=== PATIENT | male | born 1955 | race American Indian/Alaskan Native ===

== ENCOUNTER 2017-12-05 10:40 | Emergency (ER) | payer MEDICARE ==
--- NOTE | 2017-12-05 13:35 | Emergency Department Report ---
Blank Doc - Documentation Documentation: Patient presents with complaints of dizziness for one month. Patient reports that while being interviewed for new pain management physician when asked about dizziness he replied yes. Patient reports that pain management clinic recommended the patient go to the ER to be evaluated for dizziness before being prescribed any new medication. Patient reports also some shortness of breath. Denies chest pain fever coughing leg swelling. Patient reports a fall possible head injury.
[2017-12-05 13:54] LABS: Basophils % (Auto) 0.4 % (0.0-1.8); Eosinophils % (Auto) 0.7 % (0.0-4.3); Hematocrit 42.2 % (35.5-45.6); Hemoglobin 14.4 gm/dl (11.8-15.2); Lymphocytes # (Auto) 2.4 K/mm3 (1.2-5.4); Lymphocytes % (Auto) 39.2 % (13.4-35.0); Mean Corpuscular HGB Conc 34 % (32-34); Mean Corpuscular Hemoglobin 33 pg (28-32); Mean Corpuscular Volume 97 fl (84-94); Monocytes # (Auto) 0.5 K/mm3 (0.0-0.8); Monocytes % (Auto) 7.6 % (0.0-7.3); Platelet Count 149 K/mm3 (140-440); Red Blood Count 4.36 M/mm3 (3.65-5.03); Red Cell Distribution Width 12.7 % (13.2-15.2)
--- NOTE | 2017-12-05 13:58 | Emergency Department Report ---
HPI - HPI HPI: Patient presents with complaints of dizziness for one month. Patient reports that while being interviewed for new pain management physician when asked about dizziness he replied yes. Patient reports that pain management clinic recommended the patient go to the ER to be evaluated for dizziness before being prescribed any new medication. Patient reports also some shortness of breath. Denies chest pain fever coughing leg swelling. Patient reports a fall possible head injury. Patient denies any pain. Patient said he has had history of vertigo before and was treated. He said when he was talking to pain doctor on the phone to schedule appointment for management of chronic back pain with sciatic, he mentioned that he was dizzy 2 days ago and told him that he needs to go to the emergency room to be evaluated before he can be seen by pain clinic. Denies any fall. Denies any fever or chills. Denies any nasal congestion or coughing. Denies any headache or neck pain <RETA PACKER A - Last Filed: 12/05/17 16:45> <JERE RAIN - Last Filed: 12/05/17 20:29> - General Chief Complaint: Allergic Reaction Time Seen by Provider: 12/05/17 13:29 ED Past Medical Hx - Past Medical History Previous Medical History?: Yes Hx Hypertension: Yes Additional medical history: Gout, Sciatica, Disc problems - Surgical History Past Surgical History?: Yes Additional Surgical History: SCIATIC NERVE SURGERY - Family History Family history: no significant - Social History Smoking Status: Current Every Day Smoker Substance Use Type: None <RETA PACKER A - Last Filed: 12/05/17 16:45> <JERE RAIN - Last Filed: 12/05/17 20:29> - Medications Home Medications: Home Medications Medication Instructions Recorded Confirmed Last Taken Type Allopurinol [Zyloprim] 04/17/13 04/17/13 04/16/13 History Aspirin [Aspirin TAB] 04/17/13 04/17/13 04/16/13 History Atenolol [Tenormin] 25 mg PO DAILY 04/17/13 04/17/13 04/16/13 History Cyclobenzaprine [Flexeril] 10 mg PO TID PRN #20 tablet 04/17/[address] [Voltaren] 75 mg PO TID #60 tablet 04/17/13 Unknown Rx Hydrocodone Bit/Acetaminophen 1 - 2 each PO Q4HR PRN #20 tablet 04/17/13 Unknown Rx [Lortab 5-500 Tablet] Lisinopril [Zestril TAB] 04/17/13 04/17/13 04/16/13 History Meclizine [Antivert] 25 mg PO TID PRN #12 tablet 12/05/17 Unknown Rx ED Review of Systems ROS: Stated complaint: SIDE EFFECTS OF LYRICA Other details as noted in HPI Comment: All other systems reviewed and negative Constitutional: no symptoms reported Eyes: denies: eye pain, vision change ENT: denies: ear pain, throat pain, hearing loss, epistaxis, congestion Respiratory: no symptoms reported Cardiovascular: denies: chest pain, palpitations, dyspnea on exertion, orthopnea , edema, syncope, paroxysmal nocturnal dyspnea Gastrointestinal: denies: abdominal pain, nausea, vomiting, diarrhea, constipation, hematemesis, melena, hematochezia Genitourinary: denies: urgency, dysuria, frequency, hematuria, discharge Musculoskeletal: other (periodic forgetfulness). denies: back pain, joint swelling, arthralgia, myalgia Skin: denies: rash Neurological: abnormal gait, vertigo. denies: headache, weakness, numbness, paresthesias, confusion <RETA PACKER A - Last Filed: 12/05/17 16:45> ROS: Stated complaint: SIDE EFFECTS OF LYRICA Other details as noted in HPI <JERE RAIN P - Last Filed: 12/05/17 20:29> Physical Exam - Physical Exam Vital Signs: Vital Signs 12/05/17 10:56 Temperature 98.3 F Pulse Rate 59 L Respiratory 17 Rate Blood Pressure 149/74 O2 Sat by Pulse 100 Oximetry Vital Signs 12/05/17 12/05/17 10:56 15:04 Temperature 98.3 F Pulse Rate 59 L 87 Respiratory 17 20 Rate Blood Pressure 149/74 Blood Pressure 111/75 [Right] O2 Sat by Pulse 100 99 Oximetry General: This is a 62-year-old male well-nourished well-developed in no acute distress Physical Exam: Head: Normocephalic, atraumatic, no abrasion, no bruising and no contusion. Eyes: Biateral pupils equal and reactive to light, bilateral EOM intact.. Bilateral conjunctival and sclera without injection, normal accommodation. No nystagmus Mouth: Mucosa dry, no pharyngeal exudate or erythema. No peritonsillar abscesses. Uvula is midline and oral airways patent. Ears: Bilateral TMs pearly roy Bilateral EAC without any redness swelling or drainage. No mastoid bone tenderness Nose: Bilateral nasal mucosa normal ,Maxillary and frontal sinuses non-tender to palpate. Neck: Supple, No Cervical adenopathy, full range of motion and no C-spine tenderness. No swelling or tracheal deviation normal reflexes Cardiovascular: S1, S2. Bradycardic at 50 and regular. No murmur. Capillary refill is less then 3 seconds. Apical pulse is at 62 bpm Lungs: Clear to auscultate bilaterally. No rhonchi, wheezes or rales. No chest wall tenderness. No chest contusion. No bruising to chest. MSK: Strength 5/5 in all extremities. No joint deformity or crepitus. Normal inspection. Full range of motion to all extremities. No laceration, abrasion or ecchymotic area noted. Abdomen: Non-tender to palpate in all quadrants, no guarding or rebound tenderness, positive bowel sounds in all quadrants. No CVA tenderness. No hernia, bruit or mass. No rigidity or distention. Extremities: No clubbing, cyanosis or edema. +2 pulses. No neurovascular compromise Skin: Clean, dry and intact. No rash or lesions. Neurological: GCS at 15, Pt is alert and oriented 3 speech is clear . Bilateral hand printed circuit board panels deburrer strong and equal. Patient with unsteady gait which is not new per patient. Negative Romberg and no pronator drift. Normal Reflexes. No motor or sensory deficit Back: No vertebral tenderness, no paraspinal tenderness. Ambulates without any difficulties. Psych: Normal mood and behavior <RETA PACKER A - Last Filed: 12/05/17 16:45> - Physical Exam Vital Signs: Vital Signs 12/05/17 12/05/17 12/05/17 10:56 15:04 17:17 Temperature 98.3 F Pulse Rate 59 L 87 72 Respiratory 17 20 Rate Blood Pressure 149/74 Blood Pressure 111/75 [Right] O2 Sat by Pulse 100 99 Oximetry <JERE RAIN P - Last Filed: 12/05/17 20:29> ED Course Vital Signs 12/05/17 10:56 Temperature 98.3 F Pulse Rate 59 L Respiratory 17 Rate Blood Pressure 149/74 O2 Sat by Pulse 100 Oximetry Vital Signs 12/05/17 12/05/17 10:56 15:04 Temperature 98.3 F Pulse Rate 59 L 87 Respiratory 17 20 Rate Blood Pressure 149/74 Blood Pressure 111/75 [Right] O2 Sat by Pulse 100 99 Oximetry See vital signs for orthostatic vitals. - Reevaluation(s) Reevaluation #1: 12/05/17 16:54 Patient stable throughout ER stay. He is able to tolerate oral liquids without any difficulties. Orthostatic vital signs are stable. Patient with vertigo which is not new. <RETA PACKER A - Last Filed: 12/05/17 16:45> Vital Signs 12/05/17 12/05/17 12/05/17 10:56 15:04 17:17 Temperature 98.3 F Pulse Rate 59 L 87 72 Respiratory 17 20 Rate Blood Pressure 149/74 Blood Pressure 111/75 [Right] O2 Sat by Pulse 100 99 Oximetry <JERE RAIN P - Last Filed: 12/05/17 20:29> ED Medical Decision Making - Lab Data Result diagrams: 12/05/17 13:34 12/05/17 13:41 Lab Results 12/05/17 12/05/17 12/05/17 Range/Units 13:34 13:34 13:34 WBC 6.2 (4.5-11.0) K/mm3 RBC 4.36 (3.65-5.03) M/mm3 Hgb 14.4 (11.8-15.2) gm/dl Hct 42.2 (35.5-45.6) % MCV 97 H (84-94) fl MCH 33 H (28-32) pg MCHC 34 (32-34) % RDW 12.7 L (13.2-15.2) % Plt Count 149 (140-440) K/mm3 Lymph % (Auto) 39.2 H (13.4-35.0) % [place] % (Auto) 7.6 H (0.0-7.3) % Eos % (Auto) 0.7 (0.0-4.3) % Baso % (Auto) 0.4 (0.0-1.8) % Lymph # 2.4 (1.2-5.4) K/mm3 [place] # 0.5 (0.0-0.8) K/mm3 Eos # 0.0 (0.0-0.4) K/mm3 Baso # 0.0 (0.0-0.1) K/mm3 Seg Neutrophils % 52.1 (40.0-70.0) % Seg Neutrophils # 3.2 (1.8-7.7) K/mm3 PT 12.5 (12.2-14.9) Sec. INR 0.89 (0.87-1.13) Sodium (137-145) mmol/L Potassium (3.6-5.0) mmol/L Chloride (98-107) mmol/L Carbon Dioxide (22-30) mmol/L Anion Gap mmol/L BUN (9-20) mg/dL Creatinine (0.8-1.5) mg/dL Estimated GFR ml/min BUN/Creatinine Ratio % Glucose (75-100) mg/dL Calcium (8.4-10.2) mg/dL Total Bilirubin (0.1-1.2) mg/dL AST (5-40) units/L ALT (7-56) units/L Alkaline Phosphatase (35-129) units/L Total Creatine Kinase (55-170) units/L Troponin T < 0.010 (0.00-0.029) ng/mL NT-Pro-B Natriuret Pep 67.32 (0-900) pg/mL Total Protein (6.3-8.2) g/dL Albumin (3.9-5) g/dL Albumin/Globulin Ratio % Urine Color (Yellow) Urine Turbidity (Clear) Urine pH (5.0-7.0) Ur Specific [place] (1.003-1.030) Urine Protein (Negative) mg/dL Urine Glucose (UA) (Negative) mg/dL Urine Ketones (Negative) mg/dL Urine Blood (Negative) Urine Nitrite (Negative) Urine Bilirubin (Negative) Urine Urobilinogen (<2.0) mg/dL Ur Leukocyte Esterase (Negative) Urine WBC (Auto) (0.0-6.0) /HPF Urine RBC (Auto) (0.0-6.0) /HPF U Epithel Cells (Auto) (0-13.0) /HPF Urine Mucus /HPF 12/05/17 12/05/17 Range/Units 13:41 Unknown WBC (4.5-11.0) K/mm3 RBC (3.65-5.03) M/mm3 Hgb (11.8-15.2) gm/dl Hct (35.5-45.6) % MCV (84-94) fl MCH (28-32) pg MCHC (32-34) % RDW (13.2-15.2) % Plt Count (140-440) K/mm3 Lymph % (Auto) (13.4-35.0) % [place] % (Auto) (0.0-7.3) % Eos % (Auto) (0.0-4.3) % Baso % (Auto) (0.0-1.8) % Lymph # (1.2-5.4) K/mm3 [place] # (0.0-0.8) K/mm3 Eos # (0.0-0.4) K/mm3 Baso # (0.0-0.1) K/mm3 Seg Neutrophils % (40.0-70.0) % Seg Neutrophils # (1.8-7.7) K/mm3 PT (12.2-14.9) Sec. INR (0.87-1.13) Sodium 142 (137-145) mmol/L Potassium 3.9 (3.6-5.0) mmol/L Chloride 103.4 (98-107) mmol/L Carbon Dioxide 29 (22-30) mmol/L Anion Gap 14 mmol/L BUN 14 (9-20) mg/dL Creatinine 1.0 (0.8-1.5) mg/dL Estimated GFR > 60 ml/min BUN/Creatinine Ratio 14 % Glucose 109 H (75-100) mg/dL Calcium 9.0 (8.4-10.2) mg/dL Total Bilirubin 0.60 (0.1-1.2) mg/dL AST 27 (5-40) units/L ALT 26 (7-56) units/L Alkaline Phosphatase 67 (35-129) units/L Total Creatine Kinase 162 (55-170) units/L Troponin T (0.00-0.029) ng/mL NT-Pro-B Natriuret Pep (0-900) pg/mL Total Protein 6.8 (6.3-8.2) g/dL Albumin 4.0 (3.9-5) g/dL Albumin/Globulin Ratio 1.4 % Urine Color [place] (Yellow) Urine Turbidity Clear (Clear) Urine pH 5.0 (5.0-7.0) Ur Specific [place] 1.026 (1.003-1.030) Urine Protein <15 mg/dl (Negative) mg/dL Urine Glucose (UA) Neg (Negative) mg/dL Urine Ketones Neg (Negative) mg/dL Urine Blood Neg (Negative) Urine Nitrite Neg (Negative) Urine Bilirubin Neg (Negative) Urine Urobilinogen 4.0 (<2.0) mg/dL Ur Leukocyte Esterase Neg (Negative) Urine WBC (Auto) 1.0 (0.0-6.0) /HPF Urine RBC (Auto) 4.0 (0.0-6.0) /HPF U Epithel Cells (Auto) < 1.0 (0-13.0) /HPF Urine Mucus 2+ /HPF - EKG Data -: EKG Interpreted by Me (attending physician in ED) EKG shows normal: sinus rhythm (sinus bradycardia at 48 bpm but apical pulse rate is at 62 bpm manually) Rate: bradycardia - EKG Data When compared to previous EKG there are: no significant change - Radiology Data Radiology results: report reviewed Chest x-ray revealed no acute cardiopulmonary findings CT scan of the head and brain without contrast reveals no acute findings. - Medical Decision Making ED course: In here to be evaluated for complaints of dizziness, occasional forgetfulness and unsteadiness and feet. Patient said this is not new for him but he has chronic back pain with sciatica and was referred to a pain clinic and while he was making his appointment on the following they told him that he needs to be seen by the emergency room for dizziness. Patient has a history of vertigo and he said he's been dizzy before he says that he told them when he was talking to them a couple days on the phone that he is dizzy and this is when the accident come to the emergency room. Denies any fall. CT scan of the head and brain reports normal examination, chest x-ray is normal. Lab results were stable . Refer to radiology section for chest x-ray and CT scan results detail and laboratory section for lab detail. EKG stable with sinus bradycardia but patient's apical heart rate is at 62 bpm. He is not experiencing any dizziness at present. Patient with chronic vertigo and experience periodic dizziness. I discussed this and is lab results and radiology results. Also discussed diagnosis treatment plan and need to follow up with his primary care doctor. Patient says that he has an appointment with his primary care doctor on December 26, 2017. Discharge home with prescription for Antivert. <RETA PACKER A - Last Filed: 12/05/17 16:45> - Lab Data Result diagrams: 12/05/17 13:34 12/05/17 13:41 <JERE RAIN P - Last Filed: 12/05/17 20:29> Critical care attestation.: If time is entered above; I have spent that time in minutes in the direct care of this critically ill patient, excluding procedure time. <RETA PACKER A - Last Filed: 12/05/17 16:45> Critical care attestation.: If time is entered above; I have spent that time in minutes in the direct care of this critically ill patient, excluding procedure time. <JERE RAIN P - Last Filed: 12/05/17 20:29> ED Disposition Is pt being admited?: No Does the pt Need Aspirin: No <RETA PACKER A - Last Filed: 12/05/17 16:45> <JERE RAIN P - Last Filed: 12/05/17 20:29> Disposition: DC-01 TO HOME OR SELFCARE Condition: Stable Instructions: Vertigo (ED) Additional Instructions: Please take Antivert as prescribed Your primary care physician for ER visit for vertigo Prescriptions: Meclizine [Antivert] 25 mg PO TID PRN #12 tablet PRN Reason: Vertigo Referrals: CIERA GALLARDO MD [Primary Care Provider] - 12/07/17
[2017-12-05 14:04] LABS: Alanine Aminotransferase 26 units/L (7-56); BUN/Creatinine Ratio 14; Blood Urea Nitrogen 14 mg/dL (9-20); Hemolysis Index 9
[2017-12-05 14:05] LABS: INR 0.89 (0.87-1.13)
[2017-12-05 15:01] LABS: Bilirubin,Urine NEG (Negative); Blood,Urine NEG (Negative); Color,Urine Amber (Yellow); Mucus,Urine 2+ /HPF; Protein,Urine <15 mg/dL mg/dL (Negative)
[2017-12-05 15:05] VITALS: BP 111/75
--- NOTE | 2017-12-05 15:10 | Cat Scan Report ---
CT HEAD WITHOUT CONTRAST: HISTORY: Dizziness. TECHNIQUE: Sequential 2.5mm CT images. COMPARISON: none. FINDINGS: Cerebral Parenchyma: Within normal limits. Cerebellum: Within normal limits. Brainstem: Within normal limits. Ventricles: Normal. Sella: Normal. Extra-axial spaces: Normal. Basal Cisterns: Normal. Intracranial Hemorrhage: None. Midline Shift: None. Calvarium: Normal. Sinuses: Normal. Mastoid Air Cells: Normal. Visualized Orbits: Normal. IMPRESSION: Cranial CT scan within normal limits.
--- NOTE | 2017-12-05 15:14 | XRay Report ---
ROUTINE CHEST, TWO VIEWS: HISTORY: Dizziness. The trachea, heart, mediastinal contour, lung george and bony thorax are unremarkable. IMPRESSION: Unremarkable chest x-ray.
== END 2017-12-05 17:17 | disposition home or self-care (01) ==
LOC: ED 10:40
DX: R42 Dizziness and giddiness (principal); I10 Essential (primary) hypertension; F17.200 Nicotine dependence, unspecified, uncomplicated; Z79.82 Long term (current) use of aspirin
CPT/HCPCS: 36415; 70450; 71046; 80053; 81001; 82550; 83880; 84484; 85025; 85610; 93005; 93010; 99285